=== PATIENT | female | born 1950 | race Caucasian/White ===

== ENCOUNTER 2017-09-03 17:43 | Inpatient (IN) ==
[2017-09-03] MEDS ORDERED: 0.9 % Sodium Chloride 1,000 ML IVC ONE (19:50)
--- NOTE | 2017-09-03 19:53 | Emergency Department Note ---
Disposition Clinical Impression: Lightheadedness, Elevated blood pressure reading, Gait difficulty Disposition: Admitted As Inpatient Condition: Fair General Adult HPI - General Chief complaint: ED Dizziness Stated complaint: Dizziness; blurred vision Time Seen by Provider: 09/03/17 18:31 Source: patient Mode of arrival: ambulatory Limitations: no limitations - History of Present Illness HPI Narrative: Rabia Cooley is a 66 year old female who presented to [facility] on 09/03/17 with the chief complaint of dizziness and blurred vision of 2 days duration. Patient reports that 2 days ago early in the morning, she began to feel dizziness. She describes it as "feeling off balance." She denied having a spinning sensation, lightheadedness, or the room spinning around her. Later that evening, patient reports that she experienced blurred vision. She states that she normally has 20/20 vision with her glasses. Reports that when she attempts to focus on something, she experiences double vision. Reports a history of orthostatic hypotension, but states that her current symptoms are much different. She denies numbness, tingling, nausea, vomiting, fever, chills. Pt Subjective Complaint: Dizziness, blurred vision Onset (ago): day(s) Pain Scale: 0 - Related Data Home Medications Medication Instructions Recorded Confirmed Alendronate Sodium [Fosamax] 35 mg PO QWEEK 09/03/17 09/03/17 PARoxetine HCl [Paroxetine HCl] 30 mg PO DAILY 09/03/17 09/03/17 Pramipexole Di-HCl [Pramipexole 0.5 mg PO BID PRN 09/03/17 09/03/17 Dihydrochloride] Allergies Allergy/AdvReac Type Severity Reaction Status Date / Time Penicillins AdvReac Rash Verified 09/03/17 21:14 Review of Systems: As Per HPI Constitutional: Reports: as per HPI. Denies: fever, chills, weakness Eyes: Reports: as per HPI, vision change, other (Occassional double vision). Denies: eye pain, eye discharge Cardiovascular: Denies: dyspnea on exertion, syncope Respiratory: Denies: wheezes Neurological: Reports: as per HPI, abnormal gait (Patient has a difficult time maintaining her balance after a few steps. ). Denies: headache, weakness, numbness, vertigo Past Medical History - Past Medical History Medical history: Reports: other Psychiatric history: Reports: anxiety, depression - Social History Smoking Status: Never smoker Smokeless Tobacco Status: No Alcohol use: Reports: none Drug use: Reports: none Physical Exam - General Limitations: no limitations General appearance: alert, in no apparent distress - Eye Eye exam: Present: normal appearance, PERRL, EOMI. Absent: conjunctival injection, nystagmus, miosis, mydriasis, periorbital swelling - ENT ENT exam: normal exam - Neck Neck exam: Absent: tenderness - Chest Chest inspection: Absent: tenderness - Respiratory Respiratory exam: Present: normal lung sounds bilaterally - Cardiovascular Cardiovascular exam: Present: regular rate, normal rhythm - Neurological Exam Neurological exam: Present: alert, oriented X3, CN II-XII intact, motor sensory deficit. Absent: normal gait (Patient stumbles and loses balance after taking a few steps) - Expanded Neurological Exam Patient oriented to: Present: person, place, time Cranial nerves: EOM function (II, III, IV, ): Normal, facial sensation (V): Normal, facial palsy (VII): Normal, tongue deviation (XII): Normal Cerebellar function: finger to nose: Normal, heel to dyer: Normal Cerebellar function: ataxic gait Motor strength - LUE: 5/5 Motor strength - RUE: 5/5 Motor strength - LLE: 5/5 Motor strength - RLE: 5/5 - Psychiatric Psychiatric exam: Present: normal affect, normal mood Course Course Narrative: 67 year old female presented to ER with dizziness and blurred vision. No significant cardiac history. Neuro exam unremarkable. CT scan of the head will be obtained to rule out intracranial process. - Reevaluation(s) Reevaluation #1: CT of the head demonstrates no acute process. Patient will be admitted to medicine service. Dr. Romano accepted the patient. Vital Signs Temperature 98.2 F 09/03/17 17:51 Pulse Rate 90 09/03/17 17:51 Respiratory Rate 16 09/03/17 17:51 Blood Pressure 195/95 09/03/17 17:51 O2 Sat by Pulse Oximetry 94 09/03/17 17:51 Temperature 98.2 F 09/03/17 17:51 Pulse Rate 90 09/03/17 20:09 Respiratory Rate 20 09/03/17 20:09 Blood Pressure 174/93 09/03/17 20:09 O2 Sat by Pulse Oximetry 94 09/03/17 20:09 Oxygen Delivery Oxygen Delivery Room Air Medical Decision Making - Lab Data Result diagrams: 09/03/17 20:01 09/03/17 20:01 Lab Results 09/03/17 09/03/17 09/03/17 Range/Units 20:01 20:01 20:35 WBC 8.2 (4.3-11.1) K/mcL RBC 4.82 (3.82-4.97) M/mcL Hgb 15.0 (11.5-15.4) g/dL Hct 42.8 (35.3-44.9) % MCV 88.8 (83.0-100.0) fL MCH 31.1 (28.0-33.3) pg MCHC 35.0 (31.6-35.5) g/dL RDW 12.0 (11.5-14.5) % Plt Count 314 (140-400) K/mcL MPV 10.2 (9.4-12.4) fL Immature Gran % 0.5 (0-4) % Seg Neutrophils % 60.7 % Lymphocytes % 29.8 % Monocytes % 5.8 % Eosinophils % 2.3 % Basophils % 0.9 % Neutrophils # 5.0 (1.6-8.9) K/mcL Lymphocytes # 2.4 (0.6-4.6) K/mcL Monocytes # 0.5 (0.0-1.3) K/mcL Eosinophils # 0.2 (0.0-0.6) K/mcL Basophils # 0.1 (0.0-0.2) K/mcL Sodium 138 (136-145) mEq/L Potassium 3.9 (3.5-5.1) mEq/L Chloride 104 (98-107) mEq/L Carbon Dioxide 26 (23-29) mEq/L BUN 13 (8-23) mg/dL Creatinine 0.83 (0.60-1.20) mg/dL Est GFR ( Amer) > 60 (> 60) Est GFR (Non-Af Amer) > 60 (> 60) BUN/Creatinine Ratio 16 (6-26) Glucose 91 (70-105) mg/dL Calculated Osmolality 286 (280-300) Calcium 9.9 (8.6-10.3) mg/dL TSH 1.171 (0.340-5.600) mcIU/mL Urine Color Yellow (Yellow) Urine Clarity Clear (Clear) Urine pH 7.0 (5.0-8.0) pH Units Ur Specific [place] 1.013 (1.010-1.025) Urine Protein Negative (Neg-Trace) mg/dL Urine Glucose (UA) Normal (Normal) mg/dL Urine Ketones Negative (Negative) mg/dL Urine Blood Negative (Negative) Urine Nitrite Negative (Negative) Urine Bilirubin Negative (Negative) Urine Urobilinogen Normal (Normal) mg/dL Ur Leukocyte Esterase Trace H (Negative) Urine Microscopic RBC 0-3 (0-3) per hpf Urine Microscopic WBC 0-3 (0-3) per hpf Ur Squamous Epith Cells None Seen (None-Few) per lpf Urine Bacteria None Seen (None-Few) per hpf Hyaline Casts None Seen (None-Few) per lpf Ur Culture Indicated? YES A (NO)
[2017-09-03 20:20] LABS: Basophils # 0.1 K/mcL (0.0-0.2); Basophils % 0.9 %; Eosinophils # 0.2 K/mcL (0.0-0.6); Eosinophils % 2.3 %; Hematocrit 42.8 % (35.3-44.9); Immature Granulocytes % 0.5 % (0-4); Lymphocytes # 2.4 K/mcL (0.6-4.6); Lymphocytes % 29.8 %; Mean Corpuscular Hemoglobin 31.1 pg (28.0-33.3); Mean Corpuscular Volume 88.8 fL (83.0-100.0); Mean Platelet Volume 10.2 fL (9.4-12.4); Monocytes # 0.5 K/mcL (0.0-1.3); Monocytes % 5.8 %; Platelet Count 314 K/mcL (140-400); Red Blood Count 4.82 M/mcL (3.82-4.97); Segmented Neutrophils % 60.7 %
[2017-09-03 20:38] LABS: BUN/Creatinine Ratio 16 (6-26); Blood Urea Nitrogen 13 mg/dL (8-23); Calcium 9.9 mg/dL (8.6-10.3); Carbon Dioxide 26 mEq/L (23-29); Chloride 104 mEq/L (98-107); Glucose 91 mg/dL (70-105); Osmolality,Calculated 286 (280-300); Potassium 3.9 mEq/L (3.5-5.1); Sodium 138 mEq/L (136-145); eGFR For African Americans > 60 (> 60); eGFR For Non-African Americans > 60 (> 60)
[2017-09-03 20:46] LABS: Bilirubin,Urine Negative (Negative); Blood,Urine Negative (Negative); Clarity,Urine Clear (Clear); Color,Urine Yellow (Yellow); Glucose,Urine (UA) Normal (Normal); Ketones,Urine Negative (Negative); Leukocyte Esterase,Urine Trace (Negative); Nitrite,Urine Negative (Negative); Protein,Urine Negative (Neg-Trace); Specific Gravity,Urine 1.013 (1.010-1.025); Urobilinogen,Urine Normal (Normal)
[2017-09-03 20:48] LABS: Bacteria,Urine None Seen per hpf (None-Few); Hyaline Casts,Urine None Seen per lpf (None-Few); RBC,Urine 0-3 per hpf (0-3); Squamous Epithelial Cell,Urine None Seen per lpf (None-Few); WBC,Urine 0-3 per hpf (0-3)
[2017-09-03 20:51] LABS: Thyroid Stimulating Hormone 1.171 mcIU/mL (0.340-5.600)
--- NOTE | 2017-09-03 22:11 | Emergency Department Note ---
Disposition Clinical Impression: Lightheadedness, Elevated blood pressure reading, Gait difficulty Disposition: Admitted As Inpatient Condition: Fair General Adult HPI - General Chief complaint: ED Dizziness Stated complaint: Dizziness; blurred vision Time Seen by Provider: 09/03/17 18:31 Source: patient Mode of arrival: ambulatory Limitations: no limitations - History of Present Illness Pain Scale: 0 - Related Data Home Medications Medication Instructions Recorded Confirmed Alendronate Sodium [Fosamax] 35 mg PO QWEEK 09/03/17 09/03/17 PARoxetine HCl [Paroxetine HCl] 30 mg PO DAILY 09/03/17 09/03/17 Pramipexole Di-HCl [Pramipexole 0.5 mg PO BID PRN 09/03/17 09/03/17 Dihydrochloride] Allergies Allergy/AdvReac Type Severity Reaction Status Date / Time Penicillins AdvReac Rash Verified 09/03/17 21:14 Constitutional: Reports: as per HPI. Denies: fever, chills, weakness Eyes: Reports: as per HPI, vision change, other (Occassional double vision). Denies: eye pain, eye discharge Cardiovascular: Denies: dyspnea on exertion, syncope Respiratory: Denies: wheezes Neurological: Reports: as per HPI, abnormal gait (Patient has a difficult time maintaining her balance after a few steps. ). Denies: headache, weakness, numbness, vertigo Past Medical History - Past Medical History Medical history: Reports: other Psychiatric history: Reports: anxiety, depression - Social History Smoking Status: Never smoker Smokeless Tobacco Status: No Alcohol use: Reports: none Drug use: Reports: none Physical Exam - General Limitations: no limitations General appearance: alert, in no apparent distress Course Vital Signs Temperature 98.2 F 09/03/17 17:51 Pulse Rate 90 09/03/17 17:51 Respiratory Rate 16 09/03/17 17:51 Blood Pressure 195/95 09/03/17 17:51 O2 Sat by Pulse Oximetry 94 09/03/17 17:51 Temperature 98.4 F 09/03/17 22:34 Pulse Rate 78 09/03/17 22:34 Respiratory Rate 16 09/03/17 22:34 Blood Pressure 192/82 09/03/17 22:34 O2 Sat by Pulse Oximetry 95 09/03/17 22:34 Oxygen Delivery Oxygen Delivery Room Air Medical Decision Making - Lab Data Result diagrams: 09/03/17 20:01 09/03/17 20:01 Lab Results 09/03/17 09/03/17 09/03/17 Range/Units 20:01 20:01 20:35 WBC 8.2 (4.3-11.1) K/mcL RBC 4.82 (3.82-4.97) M/mcL Hgb 15.0 (11.5-15.4) g/dL Hct 42.8 (35.3-44.9) % MCV 88.8 (83.0-100.0) fL MCH 31.1 (28.0-33.3) pg MCHC 35.0 (31.6-35.5) g/dL RDW 12.0 (11.5-14.5) % Plt Count 314 (140-400) K/mcL MPV 10.2 (9.4-12.4) fL Immature Gran % 0.5 (0-4) % Seg Neutrophils % 60.7 % Lymphocytes % 29.8 % Monocytes % 5.8 % Eosinophils % 2.3 % Basophils % 0.9 % Neutrophils # 5.0 (1.6-8.9) K/mcL Lymphocytes # 2.4 (0.6-4.6) K/mcL Monocytes # 0.5 (0.0-1.3) K/mcL Eosinophils # 0.2 (0.0-0.6) K/mcL Basophils # 0.1 (0.0-0.2) K/mcL Sodium 138 (136-145) mEq/L Potassium 3.9 (3.5-5.1) mEq/L Chloride 104 (98-107) mEq/L Carbon Dioxide 26 (23-29) mEq/L BUN 13 (8-23) mg/dL Creatinine 0.83 (0.60-1.20) mg/dL Est GFR ( Amer) > 60 (> 60) Est GFR (Non-Af Amer) > 60 (> 60) BUN/Creatinine Ratio 16 (6-26) Glucose 91 (70-105) mg/dL Calculated Osmolality 286 (280-300) Calcium 9.9 (8.6-10.3) mg/dL TSH 1.171 (0.340-5.600) mcIU/mL Urine Color Yellow (Yellow) Urine Clarity Clear (Clear) Urine pH 7.0 (5.0-8.0) pH Units Ur Specific [place] 1.013 (1.010-1.025) Urine Protein Negative (Neg-Trace) mg/dL Urine Glucose (UA) Normal (Normal) mg/dL Urine Ketones Negative (Negative) mg/dL Urine Blood Negative (Negative) Urine Nitrite Negative (Negative) Urine Bilirubin Negative (Negative) Urine Urobilinogen Normal (Normal) mg/dL Ur Leukocyte Esterase Trace H (Negative) Urine Microscopic RBC 0-3 (0-3) per hpf Urine Microscopic WBC 0-3 (0-3) per hpf Ur Squamous Epith Cells None Seen (None-Few) per lpf Urine Bacteria None Seen (None-Few) per hpf Hyaline Casts None Seen (None-Few) per lpf Ur Culture Indicated? YES A (NO) Attestation Statement - Attestation Attestation: I examined this patient and my medical decision-making was reviewed with the Resident Physician, Dr. George and Dr. Clemente. I agree with the documented findings , disposition and treatment plan as described except to the extent set forth below. Patient is a 67-year-old white female who presents to the emergency Department with complaints of a 2 day history of persistent lightheadedness and visual disturbances. Patient describes 2 nights ago feeling very lightheaded was gradual in onset and stated that it felt similar to when she has her orthostatic hypotension but persistent did not improve with sitting or positional changes. Patient denies any headache, states approximately 12 hours later she then began to develop intermittent episodes of blurred vision that she notices specifically when she would try to focus directly on objects. Patient denies any preceding fevers or chills, no upper respiratory symptoms, no chest pain pressure or shortness breath, no palpitations, no near syncopal or syncopal episodes. Patient denies any history of falls or trauma. She denies any abdominal pain or flank pain. I agree with patient's physical exam findings as documented. Patient with elevated blood pressure on arrival. Patient's neurologic exam did not show any acute focal neurologic changes her speech is clear, she has no weakness dealing noticeable thing is a gait disturbance and when she attempts to walk with her feet in a direct line she loses her balance quickly. Patient underwent lab evaluation, EKG, and CT imaging of the brain without contrast. All of patient's workup up to this point is unremarkable and her serial neurologic exams in the emergency department remained unchanged. Patient will be admitted to the hospitalist service for further evaluation of her symptoms and remains hemodynamically stable at this time.
--- NOTE | 2017-09-03 23:54 | Internal Med History&Physical ---
<Hugh Yañez - Last Filed: 09/04/17 00:19> Date of Encounter: 09/04/17 Time of Encounter: 23:15 Internal Medicine - H&P: HPI Chief complaint: Dipoplia with lightheadedness and visual disturbances Admitted From: Emergency Dept Plans for Post Hospital Care: Home History of present illness: Ms. Cooley is a 67 year old female with PMHx of orthostatic hypotension presents to the ED with complaints of 2 day history of persistent lightheadedness and visual disturbances. Lightheadedness was gradual in onset and did not improve with positional changes. She describes the episodes are different form her usual episodes of orthostatic hypotension. She reports that she was unable to write on piece of paper due to blurry vision and started to have difficulty balancing herself. Symptoms are intermittent. She denies any headaches, f/c/n/v , recent illnesses, CP, shortness of breath, palpitations, syncope, or near syncope. No history of falls or trauma. At ED, blood work, EKG, and CT of head without contrast was unremarkable. Past Med Surg Social Fam HX - Past Medical History Medical history: other Psychiatric history: anxiety, depression - Social History Smoking Status: Never smoker Smokeless Tobacco Status: No Alcohol use: none Drug use: none - Family History Mother Living Status: Cause of : [place] Hx Family Cardiac Disorders: Yes ([place]. CVA) Hx Family Respiratory Disorders: No Hx Family Cancer: No Hx Family GI Disorders: No Hx Family Genitourinary Disorders: No Hx Family Endocrine Disorder: No Hx Family Musculoskeletal Disorders: No Hx Family Neuromuscular Disorders: No Hx Family Neurologic Disorders: No Hx Family HEENT Disorders: No Hx Family Autoimmune Disorders: No Hx Family Reproductive Disorders: No Hx Family Psychosocial Disorders: No Hx Family Medical Disorders: No Father Living Status: Cause of : Brain bleeds Hx Family Cardiac Disorders: Yes ([place], hi) Hx Family Respiratory Disorders: No Hx Family Cancer: No Hx Family GI Disorders: No Hx Family Genitourinary Disorders: No Hx Family Endocrine Disorder: No Hx Family Musculoskeletal Disorders: No Hx Family Neuromuscular Disorders: No Hx Family Neurologic Disorders: No Hx Family HEENT Disorders: No Hx Family Autoimmune Disorders: No Hx Family Reproductive Disorders: No Hx Family Psychosocial Disorders: No Hx Family Medical Disorders: No Internal Medicine - H&P: Meds Alendronate Sodium [Fosamax] 35 mg PO QWEEK 09/03/17 [History] PARoxetine HCl [Paroxetine HCl] 30 mg PO DAILY 09/03/17 [History] Pramipexole Di-HCl [Pramipexole Dihydrochloride] 0.5 mg PO BID PRN 09/03/17 [ History] 3 Allergy/AdvReac Type Severity Reaction Status Date / Time Penicillins AdvReac Rash Verified 09/03/17 21:14 All Systems PM: A 10-system review of systems was performed and is negative for pertinent findings except as documented above in the HPI. - Constitutional Constitutional: no chills, no fever(s), no night sweats - EENT Eyes: blurry vision, diplopia, no change in vision, no discharge, no pain, no photophobia Ears: no ear discharge, no ear pain, no tinnitus Nose, mouth and throat: no dysphagia, no nasal discharge, no neck pain, no sore throat - Cardiovascular Cardiovascular ROS IM: no chest pain, no diaphoresis, no dyspnea, no lightheadedness, no palpitations, no syncope - Respiratory Respiratory: no cough, no dyspnea, no wheezing, no excessive phlegm production - Gastrointestinal Gastrointestinal: no abdominal pain, no diarrhea, no hematemesis, no hematochezia, no melena, no nausea, no vomiting - Genitourinary Genitourinary: no change in urinary stream, no dysuria, no flank pain, no hematuria - Musculoskeletal Musculoskeletal ROS IM: no numbness, no tingling - Integumentary Integumentary IM: no rash, no unusual bruising - Neurological Neurological ROS: dizziness, no confusion, no convulsions, no focal weakness, no numbness, no tingling, no tremor(s) - Hematologic/Lymphatic Hematologic/Lymphatic: no easy bruising - Constitutional Vitals: Temp Pulse Resp BP Pulse Ox 98.4 F 78 16 192/82 95 09/03/17 22:34 09/03/17 22:34 09/03/17 22:34 09/03/17 22:34 09/03/17 22:34 - Head Head exam: Present: atraumatic, normocephalic - Eye Eye exam: Present: EOMI, normal appearance, conjuntiva pink, sclera anicteric Pupils: Present: normal accommodation - Neck Neck exam general surgery: Present: supple, trachea midline. Absent: lymphadenopathy - Respiratory Respiratory exam: Present: CTAB. Absent: accessory muscle use, rales, rhonchi, wheezes - Cardiovascular Cardiovascular exam: Present: RRR, +S1, +S2. Absent: diastolic murmur, gallop, rubs, systolic murmur - GI/Abdominal GI/Abdominal exam: Present: normal bowel sounds, soft, no peritoneal signs. Absent: distended, tenderness - Extremities Exam Extremities exam: Present: warm, radial pulses palpable and symmetrical. Absent : calf tenderness, cyanotic, pedal edema - Neurological Exam Neurological exam: Present: CN II-XII intact, oriented X3, no focal deficits. Absent: pronater drift, facial droop, speech deficit - Skin Skin exam: Present: dry, intact Internal Med - H&P Results - Labs CBC & Chem 7: 09/03/17 20:01 09/03/17 20:01 - Assessment and plan (1) Lightheadedness Current Visit: Yes Status: Acute Assessment and plan: Dipoplia and lightheadedness of unknown etiology. Blood work, EKG, and CT head without contrast are unremarkable. MRI without contrast, BL carotid duplex, echo pending. NIHSS protocol with neuro checks [id number] Neurology consult for further recommendations (2) Gait difficulty Current Visit: Yes Status: Acute Assessment and plan: treat per above. (3) Elevated blood pressure reading Current Visit: Yes Status: Acute Assessment and plan: Patient has no history of hypertension Nurse recheck at bedside: 150s/80s Continue to monitor vital signs No need for antihypertensives at this time (4) DVT prophylaxis Current Visit: Yes Status: Acute Assessment and plan: subQ heparin - Time Spent With Patient Total time spent is greater than 50% in coordination of care (as documented) at patient's floor/unit and/or counseling patient: Greater than 35 minutes <Gee Romano - Last Filed: 09/04/17 01:31> Date of Encounter: 09/04/17 Time of Encounter: 00:25 - EENT Eyes: blurry vision, diplopia, no photophobia Ears: no ear pain, no tinnitus - Cardiovascular Cardiovascular ROS IM: no chest pain, no diaphoresis, no dyspnea - Respiratory Respiratory: no cough, no dyspnea - Gastrointestinal Gastrointestinal: no abdominal pain, no diarrhea, no vomiting - Musculoskeletal Musculoskeletal ROS IM: no arthralgias, no back pain - Neurological Neurological ROS: dizziness, no disequilibrium, no focal weakness, no frequent falls, no headache(s) - Psychiatric Psychiatric: no anxiety, no depression - Endocrine Endocrine IM: no polydipsia, no polyuria - Allergic/Immunologic Allergic/Immunologic: no wheezing - Constitutional Vitals: Temp Pulse Resp BP Pulse Ox 98.4 F 78 16 192/82 95 09/03/17 22:34 09/03/17 22:34 09/03/17 22:34 09/03/17 22:34 09/03/17 22:34 General appearance: Present: cooperative, A&O X 3, pleasant, no acute distress, answers questions appropriately - Head Head exam: Present: normal inspection - Eye Eye exam: Present: EOMI, normal appearance, PERRL. Absent: scleral icterus Pupils: Present: normal accommodation - ENT ENT exam: Present: mucous membranes dry, normal exam - Neck Neck exam general surgery: Present: supple - Expanded Neck Exam Neck exam: Absent: carotid bruit - Respiratory Respiratory exam: Present: CTAB. Absent: chest wall tenderness, rales, rhonchi , wheezes - Cardiovascular Cardiovascular exam: Present: RRR, +S1, +S2. Absent: diastolic murmur, systolic murmur - GI/Abdominal GI/Abdominal exam: Present: normal bowel sounds, soft. Absent: hepatomegaly, splenomegaly, tenderness - Extremities Exam Extremities exam: Present: normal capillary refill, warm, radial pulses palpable and symmetrical. Absent: calf tenderness, pedal edema, tenderness - Neurological Exam Neurological exam: Present: alert, CN II-XII intact, oriented X3, no focal deficits Additional comments: no diploplia, blurred vision, or any focal eye or neurological deficits appreciated now - Psychiatric Psychiatric exam: Present: normal affect, normal mood - Skin Skin exam: Present: dry, warm. Absent: rash Internal Med - H&P Results - Labs CBC & Chem 7: 09/03/17 20:01 09/03/17 20:01 - EKG Data -: EKG Interpreted by Myself EKG shows normal: sinus rhythm Rate: normal - EKG Data Prior EKG available for review: no EKG comments: 09/04/17 01:27 NSR; WNL - Diagnostic Studies Chest x-ray Status: image reviewed by me (negative) - Attending Attestation I discussed the [place], past medical history, review of systems, lab data, and exam findings with Dr. Yañez. I then saw and examined patient independently. Presently, patient has no complaints and feels back to baseline. Her diplopia, blurry vision, and lightheadedness and dizziness have all resolved. Of note, her blood pressure was rather elevated upon presentation. She has a history of orthostatic hypotension and tends to have a low blood pressure, especially upon standing from a lying or seated position. However, her blood pressure today has been rather elevated and likely the culprit for her symptoms. Her repeat blood pressure now is in the 150s systolic. As such, we will not treat the blood pressure. If it tends to creep up above 180 systolic, we will treat for hypertensive urgency. Meanwhile, we will proceed with stroke workup and imaging. I agree with the neurochecks and NIH stroke scale assessments as well. Her EKG reveals sinus rhythm and is within normal limits. Other than my above noted comments and documented physical exam findings, I agree with Dr. Yañez's assessment and plan. - Assessment and plan (1) Lightheadedness Current Visit: Yes Status: Acute (2) Elevated blood pressure reading Current Visit: Yes Status: Acute (3) Gait difficulty Current Visit: Yes Status: Acute (4) DVT prophylaxis Current Visit: Yes Status: Acute - Time Spent With Patient Total time spent is greater than 50% in coordination of care (as documented) at patient's floor/unit and/or counseling patient:
[2017-09-03] MEDS ORDERED: Acetaminophen 325 MG TABLET PO PRN (23:57)
[2017-09-03] MEDS ORDERED: Naloxone 0.4 MG/ML INJ IVP PRN (23:57)
[2017-09-04] MEDS ORDERED: NON-FORMULARY MEDICATION 1 EACH EACH (Alendronate Sodium [Fosamax] 35 MG) PO SCH (00:15)
[2017-09-04] MEDS: *HR* Heparin 5,000 UNIT/ML VIAL SQ SCH ×2 (06:10→16:42)
[2017-09-04] MEDS ORDERED: *HR* LORazepam 2 MG/ML VIAL IVP ONE (08:18)
--- NOTE | 2017-09-04 12:44 | Neurology - Consult Note ---
<aWi Herrera - Last Filed: 09/04/17 12:40> Date of Encounter: 09/04/17 Time of Encounter: 12:30 Assessment and Plan (1) Lightheadedness Current Visit: Yes Status: Acute Both CT and MRI without findings that would suggest cause of dizziness started meclizine, will monitor for improvement suggest checking for B12 or folate deficiency (2) Diplopia Current Visit: Yes Status: Acute Improved since admission (3) Left sided lacunar infarction Current Visit: Yes Status: Chronic Left-sided lacunar infarction demonstrated on MRI in the posterior frontal lobe appears chronic, likely silent continue aspirin History of Present Illness Chief complaint: dizziness HPI: Rabia Cooley is a 67 year old female presenting with dizziness and blurred vision. Patient states that the symptoms started 2 to 3 days ago. She describes the dizziness as a "trouble walking". She finds that she has to hold on to her to get around without worrying about falling. She denies room spinning. She does admit to some orthostatic hypotension but acknowledges that this is separate from that. In regards to the blurry vision, she stated that she first noticed it when she had trouble reading. It progressed to a vertical diplopia, which has since regressed back to intermittent blurry vision. She is uncertain if the diplopia was better if she had one eye closed. CT of the head was negative. She denies headache, weakness, paresthesia, numbness, and dyspnea. Past Med Surg Social Fam HX - Past Medical History Medical history: other Psychiatric history: anxiety, depression - Social History Smoking Status: Never smoker Smokeless Tobacco Status: No Alcohol use: none Drug use: none - Family History Mother Living Status: Cause of : AR Hx Family Cardiac Disorders: Yes (AR. CVA) Hx Family Respiratory Disorders: No Hx Family Cancer: No Hx Family GI Disorders: No Hx Family Genitourinary Disorders: No Hx Family Endocrine Disorder: No Hx Family Musculoskeletal Disorders: No Hx Family Neuromuscular Disorders: No Hx Family Neurologic Disorders: No Hx Family HEENT Disorders: No Hx Family Autoimmune Disorders: No Hx Family Reproductive Disorders: No Hx Family Psychosocial Disorders: No Hx Family Medical Disorders: No Father Living Status: Cause of : Brain bleeds Hx Family Cardiac Disorders: Yes (AR, hi) Hx Family Respiratory Disorders: No Hx Family Cancer: No Hx Family GI Disorders: No Hx Family Genitourinary Disorders: No Hx Family Endocrine Disorder: No Hx Family Musculoskeletal Disorders: No Hx Family Neuromuscular Disorders: No Hx Family Neurologic Disorders: No Hx Family HEENT Disorders: No Hx Family Autoimmune Disorders: No Hx Family Reproductive Disorders: No Hx Family Psychosocial Disorders: No Hx Family Medical Disorders: No Medications and Allergies Alendronate Sodium [Fosamax] 35 mg PO QWEEK 09/03/17 [History] PARoxetine HCl [Paroxetine HCl] 30 mg PO DAILY 09/03/17 [History] Pramipexole Di-HCl [Pramipexole Dihydrochloride] 0.5 mg PO BID PRN 09/03/17 [ History] 3 Allergy/AdvReac Type Severity Reaction Status Date / Time Penicillins AdvReac Rash Verified 09/03/17 21:14 All Systems: The remainder of the systems were reviewed and are negative Review of Systems: A 10 point review of systems was completed and was negative except as noted in the HPI. Physical Examination - Vital Signs Vital Signs: Initial Vital Signs Temp Pulse Resp BP Pulse Ox 98.2 F 90 16 195/95 94 09/03/17 17:51 09/03/17 17:51 09/03/17 17:51 09/03/17 17:51 09/03/17 17:51 - Exam Exam: CONSTITUTIONAL: Well-developed and well-nourished. Comfortable and in no acute distress. CARDIOVASCULAR: Regular rate and rhythm. +S1 and S2. CHEST: Normal work of breathing. NEURO: Mental Status: Alert and oriented x3. Follows commands and answers questions. Cranial Nerves: PERRL. EOMI. Visual lockwood intact. Symmetrical facial strength. Facial sensation intact. No dysarthria. Hearing intact. Soft palate elevates symmetrically. SCM and trapezius without weakness. Tongue protrudes in midline. Motor: Left - 5/5 in upper and lower extremities. R - 5/5 in upper and lower extremities. Sensation intact. Cerebellar function intact to [id number] and rapid alternating movements. Romberg test positive. Gait ataxic. Results - Laboratory Findings CBC and BMP: 09/03/17 20:01 09/03/17 20:01 Abnormal lab findings: Abnormal lab results Ur Leukocyte Esterase Trace (Negative) H 09/03/17 20:35 Ur Culture Indicated? YES (NO) A 05/09/18 20:35 Consult Discharge Plan - Plan Referrals: Tanner Valenzuela MD [Primary Care Provider] - <Jane Montiel I - Last Filed: 09/04/17 14:51> Date of Encounter: 09/04/17 Assessment and Plan (1) Lightheadedness Current Visit: Yes Status: Acute Pt was seen and examined, my medical decision was reviewed with the Resident Physician, I agree with the documented findings, disposition and treatment plas as described except to the extent set forth below Patient who has an history of some headaches and also having these blurred vision along with this recent episode of diplopia which seemed to resolve now I did not see any focal findings on her current neurological examination to be suggestive of any posterior circulation abnormality she already had an MRI of the brain which I have reviewed that did not show any acute abnormality except evidence of an old lacunar infarct in the left frontal lobe which is a nonspecific finding and did not seem to be like a large vessel infarct. At the same time no evidence of any brainstem abnormalities on exam or on imaging studies suspect it is likely peripheral other possibility could be related to positional vertigo as she is also having some difficulty with a gait and balance checking for other metabolic abnormalities that sometimes can present in a typical pattern. Patient would benefit from physical therapy evaluation as well as symptomatic treatment with meclizine. Other treatment is as per primary team Jane Montiel MD History of Present Illness HPI: Ms. Cooley is a 67 year old female All Systems: The remainder of the systems were reviewed and are negative Physical Examination - Vital Signs Vital Signs: Initial Vital Signs Temp Pulse Resp BP Pulse Ox 98.2 F 90 16 195/95 94 09/03/17 17:51 09/03/17 17:51 09/03/17 17:51 09/03/17 17:51 09/03/17 17:51 Results - Laboratory Findings CBC and BMP: 09/03/17 20:01 09/03/17 20:01 Abnormal lab findings: Abnormal lab results Ur Leukocyte Esterase Trace (Negative) H 09/03/17 20:35 Ur Culture Indicated? YES (NO) A 09/03/17 20:35
--- NOTE | 2017-09-04 15:09 | Electrocardiograph Report ---
[address] [place] [address] Test Date: 2017-09-03 Pat Name: Rabia Cooley Department: 103 Room: 3B12 Gender: F [employer]: : [id number] Requested By: Tito Clemente Order Number: [id number] Reading MD: Daisy Joiner Measurements Intervals [place] Rate: 79 P: 46 SD: 129 QRS: 42 QRSD: 81 T: 32 QT: 372 QTc: 407 Interpretive Statements SINUS RHYTHM Electronically Signed On 09-04-2017 15:07:49 EDT by Daisy Joiner
--- NOTE | 2017-09-04 18:57 | Internal Med Progress Note ---
Date of Encounter: 09/04/17 Time of Encounter: 18:54 - Assessment and plan (1) Lightheadedness Current Visit: Yes Status: Acute Assessment and plan: Dipoplia and lightheadedness of unknown etiology. Blood work, EKG, and CT head without contrast are unremarkable. MRI without contrast, did show old lacunar infarct, carotid Dopplers NSP bilaterally, echocardiogram EF of 65% mild left ventricular diastolic dysfunction normal right ventricular structure and function mild mitral regurgitation mild tricuspid regurgitation no pulmonary hypertension. Small pericardial effusion present there is no echocardiographic evidence obtained been on NIHSS protocol with neuro checks [id number] Neurology consulted PT OT evaluation Orthostatic vital signs We will check B12 and folate in a.m. Meclizine as needed (2) Elevated blood pressure reading Current Visit: Yes Status: Acute (3) Gait difficulty Current Visit: Yes Status: Acute Assessment and plan: treat per above. We will have PT OT evaluate patient (4) DVT prophylaxis Current Visit: Yes Status: Acute Assessment and plan: subQ heparin - Time Spent With Patient Total time spent is greater than 50% in coordination of care (as documented) at patient's floor/unit and/or counseling patient: - Subjective Interval history: This patient is new to me I did review medical records patient was seen and examined at bedside. Presently denies any diplopia or blurry vision. She states she feels much better. We did discuss the findings of MRI. I did review treatment plan with patient verbalized understanding. - Constitutional Vitals: Temp Pulse Resp BP Pulse Ox 98.5 F 105 14 168/81 93 09/04/17 15:30 09/04/17 15:30 09/04/17 15:30 09/04/17 15:30 09/04/17 15:30 General appearance: Present: cooperative, A&O X 3, pleasant, no acute distress, answers questions appropriately - Head Head exam: Present: atraumatic, normocephalic - Eye Eye exam: Present: PERRL, conjuntiva pink, sclera anicteric Pupils: Present: PERRL - Neck Neck exam general surgery: Present: supple, trachea midline. Absent: lymphadenopathy - Respiratory Respiratory exam: Present: CTAB. Absent: accessory muscle use, rales, rhonchi, wheezes - Cardiovascular Cardiovascular exam: Present: RRR, +S1, +S2. Absent: diastolic murmur, gallop, rubs, systolic murmur - GI/Abdominal GI/Abdominal exam: Present: normal bowel sounds, soft, no peritoneal signs. Absent: distended, tenderness - Extremities Exam Extremities exam: Present: warm, radial pulses palpable and symmetrical. Absent : calf tenderness, cyanotic, pedal edema - Neurological Exam Neurological exam: Present: CN II-XII intact, oriented X3, no focal deficits. Absent: pronater drift, facial droop, speech deficit - Skin Skin exam: Present: dry, intact Internal Medicine: Result - Labs CBC & Chem 7: 09/03/17 20:01 09/03/17 20:01 - Impressions Impressions Brain MRI 09/04/17 00:06 IMPRESSION: 1. No evidence of an acute infarct. 2. Acute left sphenoid sinusitis. 3. Cerebral and cerebellar parenchymal volume loss with mild chronic microvascular white matter ischemic disease. There is a chronic lacunar infarct in the subcortical white matter of the posterior left frontal lobe. D/ / 09/04/2017 11:33:59 Jarred De Santiago MD / [facility] Interpreting Provider: Jarred De Santiago MD Echocardiogram 09/04/17 00:07 Impressions: LVEF 65%. Mild left ventricular diastolic dysfunction. Normal right ventricular structure and function. Mild mitral regurgitation. Mild tricuspid regurgitation. No pulmonary hypertension. There is a small pericardial effusion present. There is no echocardiographic evidence of tamponade. Left Ventricular Wall Motion: Rest Echo Findings All wall segments showed normal motion. Findings: Study Quality * Technically adequate exam. ECG Findings * Normal sinus rhythm. Left Ventricle * LVEF 65%. * Normal LV chamber size, wall thickness and function. * Mild left ventricular diastolic dysfunction. Right Ventricle * Normal right ventricular structure and function. Left Atrium * Moderately dilated left atrium. Right Atrium * Normal right atrial size. Aortic Valve * No aortic regurgitation. * Aortic valve not well visualized. * No aortic stenosis. Mitral Valve * Normal mitral valve structure. * No mitral stenosis. * Mild mitral regurgitation. Tricuspid Valve * Tricuspid valve not well visualized. * Mild tricuspid regurgitation. * Estimated RA pressure is 3 mmHg. * Estimated RVSP is 19 mmHg. * No pulmonary hypertension. Pulmonic Valve * Pulmonic valve is not well visualized. * No pulmonic stenosis. * No pulmonic regurgitation. Pulmonary Artery * Pulmonary artery not well visualized. Aorta * Normally sized aortic root. Pericardium * There is a small pericardial effusion present. * There is no echocardiographic evidence of tamponade. Interatrial Septum * No evidence of PFO by color Doppler. IVC * The IVC is not dilated. Consult Discharge Plan - Plan Referrals: Tanner Valenzuela MD [Primary Care Provider] -
[2017-09-04] MEDS: Aspirin 81 MG TAB.CHEW PO SCH (20:17)
[2017-09-05 04:17] LABS: Basophils # 0.1 K/mcL (0.0-0.2); Eosinophils # 0.2 K/mcL (0.0-0.6); Eosinophils % 3.2 %; Hematocrit 43.9 % (35.3-44.9); Hemoglobin 14.3 g/dL (11.5-15.4); Immature Granulocytes % 0.3 % (0-4); Lymphocytes # 2.3 K/mcL (0.6-4.6); Lymphocytes % 37.8 %; Mean Corpuscular HGB Conc 32.6 g/dL (31.6-35.5); Mean Corpuscular Hemoglobin 29.3 pg (28.0-33.3); Mean Platelet Volume 10.4 fL (9.4-12.4); Monocytes # 0.4 K/mcL (0.0-1.3); Monocytes % 7.1 %; Neutrophils # 3.1 K/mcL (1.6-8.9); Platelet Count 307 K/mcL (140-400); Red Blood Count 4.88 M/mcL (3.82-4.97); Red Cell Distribution Width 12.2 % (11.5-14.5); Segmented Neutrophils % 50.6 %
[2017-09-05 04:34] LABS: BUN/Creatinine Ratio 15 (6-26); Blood Urea Nitrogen 12 mg/dL (8-23); Calcium 9.3 mg/dL (8.6-10.3); Carbon Dioxide 26 mEq/L (23-29); Chloride 108 mEq/L (98-107); Glucose 96 mg/dL (70-105); Osmolality,Calculated 292 (280-300); Potassium 3.7 mEq/L (3.5-5.1); Sodium 141 mEq/L (136-145); eGFR For African Americans > 60 (> 60); eGFR For Non-African Americans > 60 (> 60)
[2017-09-05 04:35] LABS: Chol/HDL Ratio 6.1 (0-4.9)
[2017-09-05 04:59] LABS: Vitamin B12 1039 pg/mL (250-1100)
[2017-09-05] MEDS: *HR* Heparin 5,000 UNIT/ML VIAL SQ SCH (05:01)
[2017-09-05 05:03] LABS: Folate > 22.3 ng/mL (3.0-16.0)
[2017-09-05] MEDS: Aspirin 81 MG TAB.CHEW PO SCH (07:35)
--- NOTE | 2017-09-05 10:58 | Neurology Progress Note ---
Date of Encounter: 09/05/17 Time of Encounter: 07:30 Assessment and Plan (1) Lightheadedness Current Visit: Yes Status: Acute Agent is a stable no evidence of any acute findings on MRI of the brain no clinical symptoms at this time. Though clinically she is stable but MRI of the brain did show some chronic nonspecific white matter changes likely related to small vessel disease within evidence of lacunar infarction in the past. May benefit from continued antiplatelet therapy like in aspirin on a daily basis. Echocardiogram is been negative did not find carotid duplex in the system suggest getting a carotid duplex could be done as an outpatient if it is not done yet for secondary stroke prevention As far as the dizziness she may take some meclizine on an as-needed basis otherwise clinically she is a stable. From neurology standpoint patient is okay to be discharged follow-up with the primary care and with neurology Jane Montiel MD Subjective Interval history: Patient is stable no other new symptoms no evidence of any double vision no focal motor weakness dizziness has improved. MRI did not show any acute infarct. Labs are also within normal limits Objective - Constitutional Vitals: Temp Pulse Resp BP Pulse Ox 98.5 F 75 18 127/77 96 09/05/17 06:49 09/05/17 08:55 09/05/17 06:49 09/05/17 08:55 09/05/17 06:49 Results - Laboratory Findings CBC and BMP: 09/05/17 03:23 09/05/17 03:23 Abnormal lab findings: Abnormal lab results Chloride 108 mEq/L (98-107) H 09/05/17 03:23 Triglycerides 182 mg/dL (< 150) H 09/05/17 03:23 Cholesterol 264 mg/dL (< 200) H 09/05/17 03:23 LDL Cholesterol, Calc 185 mg/dL (0-99) H 09/05/17 03:23 VLDL Cholesterol, Calc 36 mg/dL (< 31) H 09/05/17 03:23 Cholesterol/HDL Ratio 6.1 (0-4.9) H 09/05/17 03:23 Folate > 22.3 ng/mL (3.0-16.0) H 09/05/17 03:23 Ur Leukocyte Esterase Trace (Negative) H 09/03/17 20:35 Ur Culture Indicated? YES (NO) A 09/03/17 20:35 - Diagnostic Findings Additional findings: MRI of the brain No evidence of an acute infarct. 2. Acute left sphenoid sinusitis. 3. Cerebral and cerebellar parenchymal volume loss with mild chronic microvascular white matter ischemic disease. There is a chronic lacunar infarct in the subcortical white matter of the posterior left frontal lobe. Consult Discharge Plan - Plan Referrals: Tanner Valenzuela MD [Primary Care Provider] -
[2017-09-05 11:40] VITALS: BP 132/79
--- NOTE | 2017-09-05 13:14 | Discharge Summary ---
- NOTES TO OUTPATIENT PROVIDER Notes to Outpatient Provider: small pericardial effusion- follow up echo in 2 weeks, cont with meclizine, metoprolol. Date of Encounter: 09/05/17 Time of Encounter: 13:10 - Discharge Diagnosis (1) Lightheadedness Priority: Primary Status: Acute (2) Elevated blood pressure reading Priority: Secondary Status: Acute (3) Gait difficulty Priority: Secondary Status: Acute Hospital course: Ms. Cooley is a 67 year old female past medical history of orthostatic hypotension presented to the ER with complaints of 2 day history of persistent lightheadedness and visual disturbances. She described lightheadedness as gradual in onset did improve with positional changes. Describing visual disturbances as blurry vision and that she was unable to write on a piece of paper she was having difficulty balancing herself. His symptoms were intermittent. She denies any headaches fevers chills nausea vomiting chest pain or shortness of breath palpitations syncope or near syncopal episodes. Lab work EKG and CT of head were unremarkable. MRI was completed which did show an old lacunar infarct. Patient was initiated on aspirin and meclizine. Carotid duplex was completed preliminary results NSP noted bilaterally. She was seen by neurology who recommended continuation of meclizine and ASA. Patient's symptoms eventually resolved she was seen by PT OT and did not require any home needs. Echo was completed which did reveal a small pericardial effusion. Overnight she did experience some tachycardia and elevated blood pressure she was initiated on metoprolol 12.5 twice a day and heart rate and blood pressure improved. I did do a curbside consult with cardiology Joya Andrade NP who recommended continuation of metoprolol and follow-up echo as outpatient. Orthostatic vitals were completed and were normal. I advised patient to continue with the meclizine and metoprolol as well as follow-up with her primary care physician incomplete an echo in 2 weeks. Patient verbalized understanding. She is hemodynamically stable and ready for discharge at this time. Discharge discussed with: patient - Time Spent with Patient Total time spent providing and/or coordinating discharge services: - Discharge Medications Prescriptions: Aspirin 81 mg PO DAILY #30 tab.chew Meclizine [Antivert] 25 mg PO DAILY PRN #30 tablet PRN Reason: Dizziness Metoprolol [Lopressor] 12.5 mg PO BID #30 tablet Home Medications: Alendronate Sodium [Fosamax] 35 mg PO QWEEK 09/03/17 [History] PARoxetine HCl [Paroxetine HCl] 30 mg PO DAILY 09/03/17 [History] Pramipexole Di-HCl [Pramipexole Dihydrochloride] 0.5 mg PO BID PRN 09/03/17 [ History] Aspirin 81 mg PO DAILY #30 tab.chew 09/05/17 [Rx] Meclizine [Antivert] 25 mg PO DAILY PRN #30 tablet 09/05/17 [Rx] Metoprolol [Lopressor] 12.5 mg PO BID #30 tablet 09/05/17 [Rx] Allergies/Adverse Reactions: 3 Allergy/AdvReac Type Severity Reaction Status Date / Time Penicillins AdvReac Rash Verified 09/03/17 21:14 Date of admission: 09/04/17 18:41 Primary care physician: Tanner Valenzuela MD Discharging clinician: Dali Varner Anticipated date of discharge: 09/05/17 - Constitutional Vitals: Temp Pulse Resp BP Pulse Ox 97.8 F 71 18 132/79 96 09/05/17 11:39 09/05/17 11:39 09/05/17 11:39 09/05/17 11:39 09/05/17 11:39 General appearance: Present: cooperative, A&O X 3, pleasant, no acute distress, answers questions appropriately - Head Head exam: Present: atraumatic, normocephalic - Eye Eye exam: Present: PERRL, conjuntiva pink, sclera anicteric Pupils: Present: PERRL - Neck Neck exam general surgery: Present: supple, trachea midline. Absent: lymphadenopathy - Respiratory Respiratory exam: Present: CTAB. Absent: accessory muscle use, rales, rhonchi, wheezes - Cardiovascular Cardiovascular exam: Present: RRR, +S1, +S2. Absent: diastolic murmur, gallop, rubs, systolic murmur - GI/Abdominal GI/Abdominal exam: Present: normal bowel sounds, soft, no peritoneal signs. Absent: distended, tenderness - Extremities Exam Extremities exam: Present: warm, radial pulses palpable and symmetrical. Absent : calf tenderness, cyanotic, pedal edema - Neurological Exam Neurological exam: Present: CN II-XII intact, oriented X3, no focal deficits. Absent: pronater drift, facial droop, speech deficit - Skin Skin exam: Present: dry, intact - Patient Status Disposition: Home, Self-Care Condition: Fair Functional capacity at discharge: independent ambulation Overall status at discharge: patient is back to baseline - Discharge Instructions Follow Up With: Tanner Valenzuela MD [Primary Care Provider] - - Diet and Activity Activity: increase activity as tolerated Diet: advance to your usual diet
== END 2017-09-05 14:45 | disposition home or self-care (01) | DRG 149 ==
LOC: EMEROO 17:43 → 3BNU 17:43
PROVIDERS: ADMIT Pediatrics; ATTEND Pediatrics